=== PATIENT | male | born 1980 | race African-American/Black ===

== ENCOUNTER 2020-02-10 02:38 | Emergency (ER) | payer SELFPAY ==
[~2020-02-10] VITALS: Ht 170.2 cm; Wt 72.3 kg
[2020-02-10] MEDS ORDERED: IV NORMAL SALINE 1000ML BAG 1,000 ML IV SCH (02:46)
[2020-02-10 03:06] LABS: BASO # 0.1 x10^3/uL (0.0-0.2); BASO % 1 % (0-3); EOS # 0.1 x10^3/uL (0.0-0.7); EOS % 1 % (0-3); HEMATOCRIT 43.8 % (39.0-53.0); HEMOGLOBIN 14.4 g/dL (13.0-17.5); LYMPH # 2.9 x10^3/uL (1.0-4.8); LYMPH % 37 % (24-48); MEAN CORPUSCULAR HEMOGLOBIN 30 pg (25-35); MEAN CORPUSCULAR HGB CONC 33 g/dL (31-37); MEAN CORPUSCULAR VOLUME 92 fL (79-100); MONO # 0.6 x10^3/uL (0.0-1.1); MONO % 8 % (0-9); NEUT # 4.2 x10^3/uL (1.8-7.7); NEUT % 53 % (31-73); PLATELET COUNT 286 x10^3/uL (140-400); RED BLOOD COUNT 4.78 x10^6/uL (4.30-5.70); RED CELL DISTRIBUTION WIDTH 13.5 % (11.5-14.5); WHITE BLOOD COUNT 7.8 x10^3/uL (4.0-11.0)
--- NOTE | 2020-02-10 03:08 | EKG ---
[facility] [address] [place] [address] Test Date: 2020-02-10 Test Time: 03:01:05 Pat Name: JEANIE KOLB Department: Room: Gender: M Mechanical Maintenance: : 1980 Requested By: DAMIEN BLANCHARD Order Number: [id number] Reading MD: Gigi Caicedo Measurements Intervals Ethel Rate: 79 P: 61 MI: 110 QRS: 36 QRSD: 76 T: 34 QT: 352 QTc: 409 Interpretive Statements SINUS RHYTHM T ABNORMALITY IN INFERIOR LEADS Electronically Signed On 02-10-2020 8:07:36 CDT by Gigi Caicedo
--- NOTE | 2020-02-10 03:10 | PHYS DOC ---
Past Medical History Past Medical History: Diabetes-Type II, High Cholesterol Past Surgical History: No Surgical History Smoking Status: Current Every Day Smoker Alcohol Use: Occasionally Social History Narrative: Used use Meth, clean for 1 year General Adult EDM: Chief Complaint: CHEST PAIN HPI: HPI: Patient is a 39 year old -[place] male who is brought to the ER by family secondary to reported abnormal breathing pattern and chest pain. The patient reports he has had chest pain for the past 2 days that feels as though an elephant is sitting on his chest and currently describes his pain as moderate. He is also diabetic and his glucometer is broken so he has not been checking his glucose recently but he has been taking insulin; his Accu-Chek in the ER was 320. The patient denies fever, chills, cough, recent sickness otherwise. He reports no medical history besides diabetes. He did take aspirin prior to arrival Review of Systems: Review of Systems: All other systems negative except as documented in HPI. Heart Score: HEART Score for Chest Pain: HEART Score for Chest Pain Response (Comments) Value History Moderately Suspicious 1 ECG Normal 0 Age < 45 0 Risk Factors 1 or 2 Risk Factors 1 Troponin < Normal Limit 0 Total 2 Risk Factors: Risk Factors: DM, smoker Risk Scores: Score 0 - 3: 2.5% MACE over next 6 weeks - Discharge Home Score 4 - 6: 20.3% MACE over next 6 weeks - Admit for Clinical Observation Score 7 - 10: 72.7% MACE over next 6 weeks - Early Invasive Strategies Current Medications: Current Medications Medications (Trade) Dose Ordered Sig/Chuck Start Time Stop Time Status Last Admin Dose Admin Sodium Chloride 1,000 ml @ 1,000 mls/hr Q1H 02/10/20 02:46 02/10/20 03:45 UNV Allergies: Allergies: Allergies Coded Allergies Type Severity Reaction Last Updated Verified No Known Drug Allergies 02/10/20 No Physical Exam: PE: Constitutional: Well developed, well nourished, appears to not feel well HENT: Normocephalic, atraumatic, bilateral external ears normal, oropharynx dry no oral exudates, nose normal. [] Eyes: PERRLA, EOMI, conjunctiva normal, no discharge. [] Neck: Normal range of motion, no tenderness, supple, no stridor. [] Cardiovascular:Heart rate regular rhythm, no murmur [] Lungs & Thorax: Bilateral breath sounds clear to auscultation [] Abdomen: Bowel sounds normal, soft, no tenderness, no masses, no pulsatile masses. [] Skin: Warm, dry, no erythema, no rash. [] Back: No tenderness, no CVA tenderness. [] Extremities: No tenderness, no cyanosis, no clubbing, ROM intact, no edema. [] Neurologic: Alert and oriented X 3, normal motor function, normal sensory function, no focal deficits noted. [] Psychologic: Affect normal, judgement normal, mood normal. [] Current Patient Data: Labs: Laboratory Tests Test 02/10/20 02:57 Glucose (Fingerstick) 320 mg/dL (70-99) H EKG: EKG: EKG shows a sinus rhythm with no specific ST changes or abnormalities. Normal intervals and heart rate of 80. [] Radiology/Procedures: Radiology/Procedures: Chest x-ray is unremarkable per radiology interpretation [] Course & Med Decision Making: Course & Med Decision Making 0309: Patient seen for chest pain. Will initiate cardiac work-up. EKG is unremarkable at this time. Differential diagnosis includes cardiac abnormality and DKA. 0413: Patient's work-up is complete at this time and is unremarkable except for mild hypomagnesemia and elevated glucose. Patient reports that he moved recently from [place] to [place] approximately 4 to 5 days ago and since that time he has had increased chest pain mostly with inspiration. At this time he is stable for discharge and I will start him on steroids and anti- inflammatories for chest wall pain. Samira Disclaimer: Samira Disclaimer: This electronic medical record was generated, in whole or in part, using a voice recognition dictation system. Departure Departure Impression: Primary Impression: Chest wall pain Additional Impression: Diabetes mellitus with hyperglycemia Disposition: HOME, SELF-CARE Condition: IMPROVED Patient Instructions: Chest Wall Pain Scripts Diclofenac Sodium (DICLOFENAC SODIUM) 75 Mg Tablet. 1 TAB PO BID for 10 Days, #20 TAB 1 Refill Prov: DAMIEN BLANCHARD DO 02/10/20 Prednisone (PREDNISONE) 20 Mg Tablet 2 TAB PO DAILY, #10 TAB Prov: DAMIEN BLANCHARD DO 02/10/20 DAMIEN BLANCHARD DO Feb 10, 2020 03:10
[2020-02-10 03:15] LABS: CALCIUM 9.3 mg/dL (8.5-10.1); CREATININE 1.1 mg/dL (0.7-1.3); GFR 74.9; POTASSIUM 4.6 mmol/L (3.5-5.1)
[2020-02-10 03:17] LABS: PROTHROMBIN TIME PATIENT 11.7 SEC (11.7-14.0)
[2020-02-10 03:23] LABS: ALBUMIN 3.6 g/dL (3.4-5.0); ALBUMIN/GLOBULIN RATIO 0.9 (1.0-1.7); MAGNESIUM 1.6 mg/dL (1.8-2.4); TOTAL BILIRUBIN 0.3 mg/dL (0.2-1.0); TOTAL PROTEIN 7.5 g/dL (6.4-8.2)
[2020-02-10 03:39] LABS: BARBITURATES NEG (NEG); BENZODIAZEPINES NEG (NEG); CANNABINOIDS NEG (NEG); COCAINE NEG (NEG); METHADONE NEG (NEG); OPIATES NEG (NEG); PHENCYCLIDINE NEG (NEG)
[2020-02-10 03:40] LABS: AMPHETAMINE/METHAMPHETAMINE NEG (NEG)
--- NOTE | 2020-02-10 04:12 | RAD ---
EXAM: CHEST ONE VIEW. HISTORY: Chest pain. COMPARISON: None. FINDINGS: A frontal view of the chest is obtained. There are no confluent infiltrates. There is no pneumothorax or pleural effusion. The heart is not enlarged. IMPRESSION: 1. No confluent infiltrates. Electronically signed by: Itzel Sanches MD (02/10/2020 4:09 AM) [facility]
[2020-02-10] MEDS ORDERED: DICL75TA PO (04:20)
[2020-02-10] MEDS ORDERED: PRED20TA PO (04:20)
[2020-02-10 04:22] VITALS: BP 129/81
== END 2020-02-10 04:34 | disposition home or self-care (01) ==
LOC: ER 02:38
DX: R07.89 Other chest pain (principal); E11.65 Type 2 diabetes mellitus with hyperglycemia; E78.00 Pure hypercholesterolemia, unspecified; F17.200 Nicotine dependence, unspecified, uncomplicated
CPT/HCPCS: 36415; 71045; 80053; 80307; 82010; 82553; 82962; 83690; 83735; 83880; 84443; 84484; 85025; 85610; 85730; 93005; 96360; 99285; J7030